=== PATIENT | male | born 1985 ===

== ENCOUNTER 2025-01-24 13:03 | Outpatient (AMB) | payer BC, SELFPAY ==
--- NOTE | 2025-01-24 13:05 | MHC.PC.OV ---
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 Accompanied by: Self / Same As Patient Allergies No Known Allergies Allergy (Verified 01/24/25 13:05) Tobacco use date assessed: 01/24/25 Dental Screening Dental Screen Date: 01/24/25 Did you have a dental visit in the last 12 months?: Yes Did you have a dental problem in the last 6 months where you did not have access to dental care?: No Was dental information given to patient?: Patient has dentist [facility] Medical History (Updated 01/24/25 @ 13:34 by Tawanda Landis MD) Hyperlipidemia Attention deficit disorder Family History (Updated 01/24/25 @ 13:14 by QUAN Walker) Father Prostate cancer Mother No problems noted. Social History (Updated 01/24/25 @ 13:14 by QUAN Walker) Housing: House Alcohol intake: current Alcohol intake frequency: a few times a week Patient Tobacco Use Status: Never used Tobacco service: No Current occupational status: employed Cognitive needs: No Hearing needs: No Vision needs: Yes (rx glasses) Questionnaire PHQ-9 Over the last 2 weeks, how often have you been bothered by any of the following problems? 1. Little interest or pleasure in doing things: not at all 2. Feeling down, depressed, or hopeless: not at all 3. Trouble falling or staying asleep, or sleeping too much: not at all 4. Feeling tired or having little energy: not at all 5. Poor appetite or overeating: not at all 6. Feeling bad about yourself - or that you are a failure or have let yourself or your family down: not at all 7. Trouble concentrating on things, such as reading the newspaper or watching television: not at all 8. Moving or speaking so slowly that other people could have noticed. Or the opposite - being so fidgety or restless that you have been moving around a lot more than usual: not at all 9. Thoughts that you would be better off or of hurting yourself in some way: not at all Total score: 0 Source: Developed by Drs. Vincent Barker, Jana Bauer, Gianni Bradley and colleagues, with an educational toney from [employer]. Thrive Questionnaire Date Thrive assessed: 01/24/25 I am a: Patient What is your living situation today?: I have a steady place to live Within the past 12 months, did the food you bought not last and you didn't have the money to get more?: Never true Within the past 12 months, did you worry whether your food would run out before you got money to buy more?: Never true Do you have trouble paying for medicines?: No Do you have trouble getting transportation to medical appointments?: No Do you have trouble paying your heating and electricity bill?: No Do you have trouble taking care of your child, family member or friend?: No Do you have trouble with day-to-day activities such as bathing, preparing meals, shopping, managing finances, etc.?: No Are you currently unemployed and looking for a job?: No Are you interested in more education?: No Please select the resources that you would like help with: None THRIVE Score: 0 AUDIT C Alcohol Use Questionnaire (AUDIT-C) 1. How often do you have a drink containing alcohol?: 2-3 times a week 2. How many drinks containing alcohol do you have on a typical day when you are drinking?: 1 or 2 3. How often do you have six or more drinks on one occasion?: Never Total Score: 3 GIO-7 AMB Questionnaire GIO-7 Date GIO - 7 assessed: 01/24/25 Feeling nervous, anxious, or on edge: 0 = Not at all Not being able to stop or control worryin = Not at all Worrying too much about different things: 0 = Not at all Trouble relaxin = Not at all Being so restless that it is hard to sit still: 0 = Not at all Becoming easily annoyed or irritable: 0 = Not at all Feeling afraid as if something awful might happen: 0 = Not at all Total GIO-7 score (0-4 normal; 5-9 mild; 10-14 moderate; 15-21 severe): 0 Source: Developed by Jana Zamudio Kurt Kroenke and colleagues, with an educational toney from [employer]. Physical exam (Primary Care) Vital Signs: Last Vital Signs Temp 98.4 F 01/24/25 13:09 Pulse 60 01/24/25 13:09 Resp 14 01/24/25 13:09 BP 134/76 01/24/25 13:09 Pulse Ox 99 01/24/25 13:09 Oxygen Delivery Method Room Air 01/24/25 13:09 BMI result Body Mass Index 21.3 Tobacco/Smoking Status: Tobacco use Status Tobacco use date assessed 01/24/25 01/24/25 13:15 Patient Tobacco Use Status Never used Tobacco 01/24/25 13:15 PHQ-9: PHQ-9 Score PHQ-9: Total score 0 01/24/25 13:15 Thrive Assessment: Date of Thrive Assessment Date Thrive assessed 01/24/25 01/24/25 13:15 Coding Level of Care Code New Pt Level 4 (67912) Complex EM visit Add On G2211 Diagnoses Attention deficit disorder F98.8 Hyperlipidemia E78.5 Assessment & Plan Assessment & Plan (1) Attention deficit disorder: Code(s): F98.8 - Other specified behavioral and emotional disorders with onset usually occurring in childhood and adolescence Category: Medical Plan: Will continue Focalin at current dosage and strength. Pt has been on medication for atleast 3 yr. 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 Minimum depression well controlled with Buspirone. (2) Hyperlipidemia: Code(s): E78.5 - Hyperlipidemia, unspecified Category: Medical Plan: Fasting lipid panel ordered Plan History of Present Illness - The patient is a 39-year-old male presenting for management of Attention Deficit Hyperactivity Disorder (ADHD) and medication continuation. - ADHD was diagnosed in high school, initially treated with Adderall, which was later switched to dexamethylphenidate (Focalin) due to dissatisfaction with Adderall's effects. - The current treatment plan was established in 2013 in [place] by a neurologist, and the patient reports satisfaction with the current regimen. - The patient has experienced dose adjustments, with the most recent increase to 20 mg due to decreased efficacy at lower doses. - The patient takes medication primarily on , occasionally on Sundays, to aid in focus and productivity. - The patient reports no substance use, except for alcohol, and denies any other medical problems apart from ADHD and hyperlipidemia. - Hyperlipidemia is managed by dietary modifications, specifically reducing saturated fat intake. 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 - Substance Use: The patient denies use of illicit substances and reports occasional alcohol consumption. - Exercise and Habits: The patient manages hyperlipidemia through dietary modifications, specifically reducing saturated fat intake. Review of Systems - Neurological: Reports difficulty focusing without medication, improved focus with medication. - Psychiatric: Denies substance use, reports occasional alcohol consumption. Physical Exam General: Cooperative and healthy appearing Nutritional Appearance: Well nourished Orientation/consciousness: Patient oriented x3 Limitations: No limitations Head: Normal to inspection General: Appearance normal, both eyes and all related structures Neck: Normal visual inspection Chest: Normal palpation of entire chest wall Respiratory: N ormal respiratory effort Neurology: Patient oriented x3, no substance use or anything noted. Results Plan 1. Attention Deficit Hyperactivity Disorder (Adhd) - Continue current prescription of dexamethylphenidate (Focalin) at 20 mg, with follow-up to assess efficacy and dosage adequacy. - Referral to a psychiatrist or neurologist for further evaluation and confirmation of treatment plan. 2. Hyperlipidemia - Continue dietary modifications to manage cholesterol levels, focusing on reducing saturated fat intake. - Obtain fasting blood work to monitor lipid profile. Discussion Notes I discussed with the patient the continuation of his current ADHD medication, dexamethylphenidate, and the importance of monitoring its efficacy. We agreed on a referral to a psychiatrist or neurologist to ensure the treatment plan remains appropriate. I also advised on obtaining fasting blood work to monitor his lipid profile and emphasized the importance of dietary modifications to manage hyperlipidemia. We discussed the logistics of obtaining past medical records and the challenges involved. The patient was informed about the need for regular follow-ups and to contact the office if any issues arise with his prescriptions. Patient Instructions - Continue taking dexamethylphenidate (Focalin) as prescribed, primarily on weekdays. - Follow dietary recommendations to manage cholesterol levels, focusing on reducing saturated fat intake. - Schedule and attend a follow-up appointment with a psychiatrist or neurologist for further evaluation of ADHD treatment. - Obtain fasting blood work at the designated lab after midnight fasting. - Contact the office if there are any issues with prescriptions or if additional medical records are obtained. Medications: New dexmethylphenidate ER 20 mg PO QAM 30 caps 0RF
[2025-01-24 13:09] VITALS: BP 134/76; PULSE 60; RESP 14; TEMP 36.9; O2SAT 99; BMI 21.3
== END 2025-01-24 13:34 | disposition home or self-care (01) ==
LOC: HO.HMCSH 13:03
PROVIDERS: PCP Internal Medicine; Visit Provider Internal Medicine
DX: F98.8 Other specified behavioral and emotional disorders with onset usually occurring in childhood and adolescence (principal); E78.5 Hyperlipidemia, unspecified